=== PATIENT | female | born 1930 | race Caucasian/White ===

== ENCOUNTER 2017-06-02 19:51 | Inpatient (IN) | payer MEDICARE, MEDICAID ==
[~2017-06-02] VITALS: Ht 157.5 cm; Wt 46.4 kg
[2017-06-02] MEDS ORDERED: MORPHINE SULFATE 4 MG/ML CPJ (NOT FOR IM USE) IV STA (21:30)
[2017-06-02] MEDS ORDERED: ONDANSETRON HCL 4MG/2ML VIAL IV STA (21:30)
[2017-06-02 21:59] LABS: HEMOGLOBIN. 13.9 g/dL (12.0-16.0); MEAN CORPUSCULAR HEMOGLOBIN 31.6 pg (28.0-32.0); MEAN CORPUSCULAR VOLUME 93.4 fL (81.0-99.0); MEAN PLATELET VOLUME 7.7 fl (7.4-10.4); PLATELET 170 x1000/uL (130-400); RED BLOOD CELL COUNT 4.39 mill/uL (4.2-5.4)
[2017-06-02 22:01] LABS: INR 1.1; PROTHROMBIN TIME 11.5 sec (9.4-11.6)
[2017-06-02 22:02] LABS: CARBON DIOXIDE 24 mEq/L (21-32); CHLORIDE 104 mEq/L (98-107)
[2017-06-02 22:10] LABS: CREATINE KINASE 36 IU/L (26-192); TROPONIN I < 0.02 ng/mL (0.00-0.04)
[2017-06-02 22:22] LABS: PLATELET ESTIMATE NORMAL
[2017-06-03 03:29] VITALS: BP 133/70
[2017-06-03] MEDS ORDERED: LISI-604 PO (03:59)
[2017-06-03] MEDS ORDERED: DICL75TA5 PO (03:59)
[2017-06-03 04:00] VITALS: BP 133/70
[2017-06-03 07:47] VITALS: BP 125/58
[2017-06-03] MEDS ORDERED: IPRATROPIUM/ALBUTEROL 0.5-3(2.5)MG/3ML NEB INH PRN (08:45)
[2017-06-03] MEDS ORDERED: MAGNESIUM/ALUMINUM HYDROXIDE/SIMETHICONE 30ML UDC PO PRN (08:45)
[2017-06-03] MEDS ORDERED: ACETAMINOPHEN 325MG TABLET PO PRN (08:45)
[2017-06-03] MEDS ORDERED: NA PHOS,M-B/NA PHOS,DI-BA ENEMA 118ML PR PRN (08:45)
[2017-06-03] MEDS ORDERED: ACETAMINOPHEN 650MG/20.3ML UDC GT PRN (08:45)
[2017-06-03] MEDS ORDERED: DOCUSATE SODIUM 100MG CAPSULE PO PRN (08:45)
[2017-06-03] MEDS ORDERED: HYDROCODONE/ACETAMINOPHEN 5/325MG TABLET PO PRN (08:45)
[2017-06-03] MEDS ORDERED: GUAIFENESIN 200MG/10ML SUGAR FREE UDC PO PRN (08:45)
[2017-06-03] MEDS ORDERED: ACETAMINOPHEN 650MG SUPP PR PRN (08:45)
[2017-06-03] MEDS ORDERED: ENOXAPARIN 40MG/0.4ML SYR SUBCUT SCH (08:45)
[2017-06-03] MEDS ORDERED: CLONIDINE 0.1MG TABLET PO PRN (08:45)
[2017-06-03] MEDS: ENOXAPARIN 30MG/0.3ML SYR SUBCUT SCH (09:42)
[2017-06-03 11:32] VITALS: BP 108/48
[2017-06-03 16:00] VITALS: BP 110/45
[2017-06-03] MEDS: SODIUM CHLORIDE 0.9% INJ 3ML FLUSH IVF SCH ×2 (17:22→22:25)
[2017-06-03 20:00] VITALS: BP 126/51
[2017-06-03] MEDS ORDERED: DEXTROSE 50% WATER 50ML SYRINGE IV PRN (20:15)
[2017-06-03] MEDS: DICLOFENAC SODIUM 75MG DR (EC) TABLET PO SCH ×2 (20:30→22:24)
[2017-06-03 20:43] LABS: CREATINE KINASE 42 IU/L (26-192); TROPONIN I < 0.02 ng/mL (0.00-0.04)
[2017-06-03 20:51] LABS: CARBON DIOXIDE 26 mEq/L (21-32); CHLORIDE 104 mEq/L (98-107)
[2017-06-03] MEDS: INSULIN LISPRO 100 UNITS/ML SUBCUT SCH (21:00)
[2017-06-03] MEDS: BLOOD SUGAR DIAGNOSTIC STRIP TEST SCH (21:00)
[2017-06-03 21:32] LABS: CLARITY URINE CLOUDY (CLEAR); COLOR URINE YELLOW (YELLOW); GLUCOSE URINE NEGATIVE (NEGATIVE); KETONES URINE NEGATIVE (NEGATIVE); LEUKOCYTE ESTERASE URINE TRACE (NEGATIVE); NITRITE URINE NEGATIVE (NEGATIVE); OCCULT BLOOD URINE NEGATIVE (NEGATIVE); PH URINE 5.5 (4.5-8.0); PROTEIN URINE 2+ (NEGATIVE)
[2017-06-03 21:52] LABS: *AMPHETAMINES SCREEN URINE NEGATIVE (NEGATIVE); *BARBITURATES SCREEN URINE NEGATIVE (NEGATIVE); *BENZODIAZEPINES SCREEN URINE NEGATIVE (NEGATIVE); *COCAINE SCREEN URINE NEGATIVE (NEGATIVE); CANNABINOID URINE SCREEN NEGATIVE (NEGATIVE); METHADONE URINE SCREEN NEGATIVE (NEGATIVE); OPIATES URINE SCREEN PRESUMTIVE POSITIVE (NEGATIVE); PHENCYCLIDINE URINE SCREEN NEGATIVE (NEGATIVE)
[2017-06-03 21:53] LABS: BASOPHILS % 0.6 % (0.0-2.0); EOSINOPHILS % 4.7 % (0.0-5.0); HEMATOCRIT. 36.9 % (36.0-48.0); HEMOGLOBIN. 12.4 g/dL (12.0-16.0); LYMPHOCYTES % 24.7 % (20.0-50.0); MEAN CORPUSCULAR HEMOGLOBIN 31.3 pg (28.0-32.0); MEAN CORPUSCULAR VOLUME 93.4 fL (81.0-99.0); MEAN PLATELET VOLUME 7.7 fl (7.4-10.4); MONOCYTES % 7.3 % (2.0-8.0); NEUTROPHILS % 62.7 % (40.0-76.0); PLATELET 147 x1000/uL (130-400); RED BLOOD CELL COUNT 3.95 mill/uL (4.2-5.4); RED CELL DISTRIBUTION WIDTH 13.2 % (11.6-14.6)
[2017-06-03] MEDS: LISINOPRIL 20MG TABLET PO SCH (22:24)
[2017-06-04] VITALS: BP 121/49
[2017-06-04 04:00] VITALS: BP 133/51
[2017-06-04] MEDS: INSULIN LISPRO 100 UNITS/ML SUBCUT SCH ×3 (05:41→17:12)
[2017-06-04] MEDS: BLOOD SUGAR DIAGNOSTIC STRIP TEST SCH ×3 (05:41→17:04)
[2017-06-04] MEDS: SODIUM CHLORIDE 0.9% INJ 3ML FLUSH IVF SCH ×2 (05:42→16:03)
[2017-06-04 06:39] LABS: BASOPHILS % 0.5 % (0.0-2.0); EOSINOPHILS % 4.2 % (0.0-5.0); HEMATOCRIT. 36.9 % (36.0-48.0); HEMOGLOBIN. 12.7 g/dL (12.0-16.0); LYMPHOCYTES % 19.9 % (20.0-50.0); MEAN CORPUSCULAR HEMOGLOBIN 31.9 pg (28.0-32.0); MEAN CORPUSCULAR VOLUME 92.8 fL (81.0-99.0); MEAN PLATELET VOLUME 7.7 fl (7.4-10.4); MONOCYTES % 6.1 % (2.0-8.0); NEUTROPHILS % 69.3 % (40.0-76.0); PLATELET 159 x1000/uL (130-400); RED BLOOD CELL COUNT 3.98 mill/uL (4.2-5.4); RED CELL DISTRIBUTION WIDTH 12.9 % (11.6-14.6)
[2017-06-04 07:15] LABS: CARBON DIOXIDE 27 mEq/L (21-32); CHLORIDE 107 mEq/L (98-107); HDL CHOLESTEROL 37 mg/dL (40-59); LDL CHOLESTEROL 119 mg/dL (5-100)
[2017-06-04 07:20] LABS: CREATINE KINASE 63 IU/L (26-192); TROPONIN I < 0.02 ng/mL (0.00-0.04)
[2017-06-04 08:00] VITALS: BP 148/64
[2017-06-04] MEDS: DICLOFENAC SODIUM 75MG DR (EC) TABLET PO SCH ×2 (09:50→17:14)
[2017-06-04] MEDS: LISINOPRIL 20MG TABLET PO SCH (09:50)
[2017-06-04] MEDS: ENOXAPARIN 30MG/0.3ML SYR SUBCUT SCH (09:51)
[2017-06-04 12:00] VITALS: BP 157/63
[2017-06-04 16:00] VITALS: BP 133/61
[2017-06-04 17:16] VITALS: BP 133/61
== END 2017-06-04 18:05 | disposition home health service (06) | DRG 552 ==
LOC: ER 20:02 → 5WST 23:57 → ENRESERV 06-03 02:58
PROVIDERS: ADMIT Family Medicine; ATTEND Family Medicine
DX: M47.812 Spondylosis without myelopathy or radiculopathy, cervical region (principal); M06.9 Rheumatoid arthritis, unspecified; E11.9 Type 2 diabetes mellitus without complications; G95.20 Unspecified cord compression; W18.39XA Other fall on same level, initial encounter; M19.90 Unspecified osteoarthritis, unspecified site; I10 Essential (primary) hypertension; Y93.89 Activity, other specified; Y92.89 Other specified places as the place of occurrence of the external cause; Y99.8 Other external cause status
CPT/HCPCS: 36415; 70450; 71010; 71250; 72125; 80053; 80061; 80305; 81001; 82550; 82962; 83880; 84443; 84484; 85025; 85610; 93005; 96374; 96375; 97116; 97162; 99285; J1650; J2270; J2405

== ENCOUNTER 2018-10-14 15:14 | Inpatient (IN) | payer MEDICARE, MEDICAID ==
[~2018-10-14] VITALS: Ht 152.4 cm; Wt 49.2 kg
[~2018-10-14 15:14] MED LIST: DICL75TA5 PO; LISI-604 PO
[2018-10-14] MEDS ORDERED: ONDANSETRON HCL 4MG/2ML INJ IV STA (15:27)
[2018-10-14] MEDS ORDERED: MORPHINE SULFATE 4 MG/ML CPJ (NOT FOR IM USE) IV STA (15:27)
[2018-10-14] MEDS ORDERED: SODIUM CHLORIDE 0.9% 1,000 ML IV ONE (15:27)
[2018-10-14 15:59] LABS: CHLORIDE 106 mEq/L (98-107); PROTHROMBIN TIME 10.1 sec (9.1-11.1)
[2018-10-14 16:00] LABS: BASOPHILS % 0.3 % (0.0-2.0); EOSINOPHILS % 0.4 % (0.0-5.0); HEMATOCRIT. 40.7 % (36.0-48.0); HEMOGLOBIN. 13.8 g/dL (12.0-16.0); LYMPHOCYTES % 9.1 % (20.0-50.0); MEAN CORPUSCULAR HEMOGLOBIN 31.7 pg (28.0-32.0); MEAN PLATELET VOLUME 7.5 fl (7.4-10.4); MONOCYTES % 3.9 % (2.0-8.0); NEUTROPHILS % 86.3 % (40.0-76.0); PLATELET 248 x1000/uL (130-400); RED BLOOD CELL COUNT 4.33 mill/uL (4.2-5.4); RED CELL DISTRIBUTION WIDTH 13.2 % (11.6-14.6)
[2018-10-14 17:14] LABS: CLARITY URINE CLOUDY (CLEAR); COLOR URINE YELLOW (YELLOW); KETONES URINE NEGATIVE (NEGATIVE); LEUKOCYTE ESTERASE URINE TRACE (NEGATIVE); NITRITE URINE NEGATIVE (NEGATIVE); OCCULT BLOOD URINE NEGATIVE (NEGATIVE); PROTEIN URINE 2+ (NEGATIVE); SPECIFIC GRAVITY URINE 1.019 (1.005-1.030)
[2018-10-14] MEDS ORDERED: CLONIDINE 0.1MG TABLET PO PRN (22:45)
[2018-10-14] MEDS ORDERED: ACETAMINOPHEN 325MG TABLET PO PRN (22:45)
[2018-10-14] MEDS ORDERED: HYDROMORPHONE HCL/PF 2MG/ML CPJ IV PRN (22:45)
[2018-10-14] MEDS ORDERED: MAGNESIUM/ALUMINUM HYDROXIDE/SIMETHICONE 30ML UDC PO PRN (22:45)
[2018-10-14] MEDS ORDERED: DIPHENHYDRAMINE 50MG/ML VIAL IV PRN (22:45)
[2018-10-14] MEDS ORDERED: GUAIFENESIN 200MG/10ML SUGAR FREE UDC PO PRN (22:45)
[2018-10-14] MEDS ORDERED: DOCUSATE SODIUM 100MG CAPSULE PO PRN (22:45)
[2018-10-14] MEDS ORDERED: ONDANSETRON HCL 4MG/2ML INJ IV PRN (22:45)
[2018-10-14] MEDS ORDERED: NA PHOS,M-B/NA PHOS,DI-BA ENEMA 118ML PR PRN (22:45)
[2018-10-14] MEDS ORDERED: LORAZEPAM 2MG/ML CPJ IV PRN (22:45)
[2018-10-14] MEDS ORDERED: IPRATROPIUM/ALBUTEROL 0.5-3(2.5)MG/3ML NEB INH PRN (22:45)
[2018-10-15] VITALS (7 sets, daily range): BP systolic 133–180; BP diastolic 53–81
[2018-10-15] MEDS: SODIUM CHLORIDE 0.9% INJ 3ML FLUSH IVF SCH ×3 (05:21→20:58)
[2018-10-15 07:48] LABS: BASOPHILS % 0.3 % (0.0-2.0); EOSINOPHILS % 2.6 % (0.0-5.0); HEMATOCRIT. 38.5 % (36.0-48.0); LYMPHOCYTES % 21.1 % (20.0-50.0); MEAN CORPUSCULAR HEMOGLOBIN 31.9 pg (28.0-32.0); MEAN CORPUSCULAR VOLUME 94.7 fL (81.0-99.0); MEAN PLATELET VOLUME 7.7 fl (7.4-10.4); MONOCYTES % 7.6 % (2.0-8.0); NEUTROPHILS % 68.4 % (40.0-76.0); PLATELET 220 x1000/uL (130-400); RED BLOOD CELL COUNT 4.06 mill/uL (4.2-5.4); RED CELL DISTRIBUTION WIDTH 13.2 % (11.6-14.6)
[2018-10-15 07:57] LABS: CHLORIDE 109 mEq/L (98-107)
[2018-10-15 08:08] LABS: CREATINE KINASE MB FRACTION 2.8 ng/mL (0.5-3.6)
[2018-10-15 08:10] LABS: CREATINE KINASE 162 IU/L (26-192)
[2018-10-15] MEDS: ASPIRIN 81MG EC TABLET PO SCH (09:24)
[2018-10-15] MEDS: HYDROCODONE/ACETAMINOPHEN 10/325MG TABLET PO PRN (09:24)
[2018-10-15] MEDS: ENOXAPARIN 40MG/0.4ML SYR SUBCUT SCH (09:24)
[2018-10-15] MEDS ORDERED: LACTULOSE 20G/30ML UDC PO PRN (18:15)
[2018-10-15 19:47] LABS: CREATINE KINASE 121 IU/L (26-192)
[2018-10-15 19:48] LABS: CREATINE KINASE MB FRACTION 1.8 ng/mL (0.5-3.6)
[2018-10-16] VITALS: BP 128/68
[2018-10-16 04:00] VITALS: BP_SYST 128; BP_DIAS 54; BP_DIAS 58
[2018-10-16] MEDS: SODIUM CHLORIDE 0.9% INJ 3ML FLUSH IVF SCH ×3 (06:36→20:49)
[2018-10-16 08:00] VITALS: BP 156/59
[2018-10-16] MEDS: ENOXAPARIN 40MG/0.4ML SYR SUBCUT SCH (10:53)
[2018-10-16] MEDS: ASPIRIN 81MG EC TABLET PO SCH (10:53)
[2018-10-16 12:00] VITALS: BP 153/53
[2018-10-16 16:00] VITALS: BP 142/55
[2018-10-16 20:00] VITALS: BP 115/38
[2018-10-17] VITALS: BP 148/58
[2018-10-17 04:00] VITALS: BP 137/46
[2018-10-17] MEDS: SODIUM CHLORIDE 0.9% INJ 3ML FLUSH IVF SCH ×3 (06:58→21:00)
[2018-10-17 08:00] VITALS: BP 131/81
[2018-10-17] MEDS: ASPIRIN 81MG EC TABLET PO SCH (09:23)
[2018-10-17] MEDS: ENOXAPARIN 40MG/0.4ML SYR SUBCUT SCH (09:23)
[2018-10-17] MEDS ORDERED: CEFTRIAXONE 1 G PREMIX 50 ML IV SCH (09:45)
[2018-10-17] MEDS: CEFTRIAXONE 1,000 MG in DEXTROSE 5% WATER 50 ML IV SCH (11:44)
[2018-10-17 12:00] VITALS: BP 146/58
[2018-10-17 16:00] VITALS: BP 150/58
[2018-10-18] VITALS (8 sets, daily range): BP systolic 120–170; BP diastolic 48–85
[2018-10-18] MEDS: SODIUM CHLORIDE 0.9% INJ 3ML FLUSH IVF SCH ×3 (05:57→21:44)
[2018-10-18] MEDS ORDERED: ENOXAPARIN 30MG/0.3ML SYR SUBCUT SCH (09:00)
[2018-10-18] MEDS: ASPIRIN 81MG EC TABLET PO SCH (09:24)
[2018-10-18 10:26] LABS: BASOPHILS % 0.5 % (0.0-2.0); EOSINOPHILS % 2.7 % (0.0-5.0); HEMATOCRIT. 38.3 % (36.0-48.0); HEMOGLOBIN. 12.8 g/dL (12.0-16.0); LYMPHOCYTES % 27.9 % (20.0-50.0); MEAN CORPUSCULAR HEMOGLOBIN 31.3 pg (28.0-32.0); MEAN CORPUSCULAR VOLUME 93.8 fL (81.0-99.0); MEAN PLATELET VOLUME 7.7 fl (7.4-10.4); MONOCYTES % 8.1 % (2.0-8.0); NEUTROPHILS % 60.8 % (40.0-76.0); PLATELET 249 x1000/uL (130-400); RED BLOOD CELL COUNT 4.09 mill/uL (4.2-5.4); RED CELL DISTRIBUTION WIDTH 13.1 % (11.6-14.6)
[2018-10-18 10:36] LABS: CHLORIDE 109 mEq/L (98-107)
[2018-10-18 10:49] LABS: HDL CHOLESTEROL 37 mg/dL (40-59)
[2018-10-18 10:51] LABS: PHOSPHORUS 3.7 mg/dL (2.5-4.9)
[2018-10-18 10:52] LABS: LDL CHOLESTEROL 129 mg/dL (5-100)
[2018-10-18] MEDS: CEFTRIAXONE 1,000 MG in DEXTROSE 5% WATER 50 ML IV SCH (13:00)
[2018-10-18] MEDS ORDERED: CLONIDINE 0.1MG TABLET PO PRN (13:15)
[2018-10-18] MEDS: AMLODIPINE 2.5MG TABLET PO SCH ×2 (14:13→21:44)
[2018-10-18] MEDS: HYDROCODONE/ACETAMINOPHEN 10/325MG TABLET PO PRN (22:21)
== END 2018-10-18 22:31 | disposition home health service (06) | DRG 347 ==
LOC: ER 15:24 → 5WST 22:16 → EDBEDREQTM 22:16 → EDBEDREQ 22:16 → ENRESERV 23:58
PROVIDERS: ADMIT Internal Medicine; ATTEND Internal Medicine
DX: M48.56XA Collapsed vertebra, not elsewhere classified, lumbar region, initial encounter for fracture (principal); E46 Unspecified protein-calorie malnutrition; E86.0 Dehydration; E83.51 Hypocalcemia; N39.0 Urinary tract infection, site not specified; R26.9 Unspecified abnormalities of gait and mobility; M85.80 Other specified disorders of bone density and structure, unspecified site; I10 Essential (primary) hypertension; R26.2 Difficulty in walking, not elsewhere classified; Z79.899 Other long term (current) drug therapy; Z91.81 History of falling; Z68.21 Body mass index [BMI] 21.0-21.9, adult; Z87.81 Personal history of (healed) traumatic fracture; M48.061 Spinal stenosis, lumbar region without neurogenic claudication
CPT/HCPCS: 36415; 72131; 74021; 80048; 80061; 82550; 82553; 83735; 84100; 84134; 84484; 93005; 93306; 93970; 97162; 97530; 99285; A6261; J0696; J1170; J1650; J2270; J2405; J7030; J7040; J7060

== ENCOUNTER 2019-04-29 11:52 | Emergency (ER) | payer MEDICARE, MEDICAID ==
[~2019-04-29] VITALS: Ht 144.8 cm; Wt 36.0 kg
[2019-04-29] MEDS ORDERED: BACITRACIN ZINC OINT UDPKT TOP ONE (13:00)
[2019-04-29] MEDS ORDERED: BACITRACIN 15GM TUBE TOP ONE (14:00)
[2019-04-29 14:19] VITALS: BP 153/50
== END 2019-04-29 14:47 | disposition home or self-care (01) ==
LOC: ER 11:52
DX: S51.812A Laceration without foreign body of left forearm, initial encounter (principal); I10 Essential (primary) hypertension; Z87.81 Personal history of (healed) traumatic fracture; Z99.3 Dependence on wheelchair; W45.8XXA Other foreign body or object entering through skin, initial encounter; W22.09XA Striking against other stationary object, initial encounter; Y93.89 Activity, other specified; Y92.018 Other place in single-family (private) house as the place of occurrence of the external cause
CPT/HCPCS: 12002; 99283

== ENCOUNTER 2021-04-15 10:17 | Inpatient (IN) | payer MEDICARE, MEDICAID ==
[~2021-04-15] VITALS: Ht 152.4 cm; Wt 41.4 kg
[~2021-04-15 10:17] MED LIST changes: +AMLO10TA80 MT; +CALC-1098 MT; +DOCU-347 MT; +LEVO500T89 MT; -LISI-604 PO; +TRAZ-251 MT
[2021-04-15] MEDS ORDERED: SODIUM CHLORIDE 0.9% 250 ML IV ONE (11:15)
[2021-04-15 11:40] LABS: BASOPHILS % 0.2 % (0.0-2.0); EOSINOPHILS % 0.1 % (0.0-5.0); HEMATOCRIT. 41.1 % (36.0-48.0); HEMOGLOBIN. 13.3 g/dL (12.0-16.0); LYMPHOCYTES % 11.5 % (20.0-50.0); MEAN CORPUSCULAR HEMOGLOBIN 31.4 pg (28.0-32.0); MEAN CORPUSCULAR VOLUME 96.8 fL (81.0-99.0); MEAN PLATELET VOLUME 7.3 fl (7.4-10.4); MONOCYTES % 4.8 % (2.0-8.0); NEUTROPHILS % 83.4 % (40.0-76.0); PLATELET 273 x1000/uL (130-400); RED BLOOD CELL COUNT 4.25 mill/uL (4.2-5.4); RED CELL DISTRIBUTION WIDTH 14.2 % (11.6-14.6)
[2021-04-15] MEDS ORDERED: SODIUM CHLORIDE 0.9% 1000ML BAG (SEPSIS BOLUS) IV ONE (12:00)
[2021-04-15] MEDS ORDERED: CEFTRIAXONE 1 G PREMIX 50 ML IV ONE (12:00)
[2021-04-15 12:48] LABS: INR 1.1; PROTHROMBIN TIME 11.4 sec (9.6-11.0)
[2021-04-15 13:40] LABS: CHLORIDE 107 mEq/L (98-107)
[2021-04-15 14:05] LABS: CLARITY URINE CLEAR (CLEAR); COLOR URINE YELLOW (YELLOW); KETONES URINE NEGATIVE (NEGATIVE); LEUKOCYTE ESTERASE URINE 1+ (NEGATIVE); NITRITE URINE NEGATIVE (NEGATIVE); OCCULT BLOOD URINE NEGATIVE (NEGATIVE); PH URINE 7.5 (4.5-8.0); PROTEIN URINE NEGATIVE (NEGATIVE); SPECIFIC GRAVITY URINE 1.015 (1.005-1.030); UROBILINOGEN URINE 0.2 E.U./dL (0.2-1.0)
[2021-04-15] MEDS ORDERED: LEVOFLOXACIN 500MG PREMIX 100 ML IV ONE (14:45)
[2021-04-15] MEDS ORDERED: ACETAMINOPHEN 325MG TABLET PO PRN (18:15)
[2021-04-15] MEDS ORDERED: IPRATROPIUM/ALBUTEROL 0.5-3(2.5)MG/3ML NEB HHN PRN (18:15)
[2021-04-15] MEDS ORDERED: DIPHENHYDRAMINE 50MG/ML VIAL IV PRN (18:15)
[2021-04-15] MEDS ORDERED: ONDANSETRON HCL 4MG/2ML INJ IV PRN (18:15)
[2021-04-15] MEDS ORDERED: CLONIDINE 0.1MG TABLET PO PRN (18:15)
[2021-04-15] MEDS ORDERED: PIPERACILLIN/TAZ 3.375G PREMIX 3.375 ML IV SCH (18:30)
[2021-04-15] MEDS ORDERED: VANCOMYCIN 750 MG PREMIX 150 ML IV NR (20:00)
[2021-04-15 23:25] VITALS: BP 143/65
[2021-04-16] VITALS: BP 163/83
[2021-04-16 04:00] VITALS: BP 139/68
[2021-04-16] MEDS ORDERED: VANCOMYCIN 750 MG PREMIX 150 ML IV NR (05:00)
[2021-04-16] MEDS: SODIUM CHLORIDE 0.9% 1,000 ML IV SCH ×2 (05:54→14:30)
[2021-04-16] MEDS ORDERED: PIPERACILLIN/TAZOBACTAM 3.375 G in DEXTROSE 5% WATER 50 ML IV SCH (06:00)
[2021-04-16 06:13] LABS: BASOPHILS % 0.4 % (0.0-2.0); HEMATOCRIT. 32.1 % (36.0-48.0); HEMOGLOBIN. 10.8 g/dL (12.0-16.0); LYMPHOCYTES % 8.3 % (20.0-50.0); MEAN CORPUSCULAR HEMOGLOBIN 31.4 pg (28.0-32.0); MEAN CORPUSCULAR VOLUME 93.7 fL (81.0-99.0); MEAN PLATELET VOLUME 8.5 fl (7.4-10.4); NEUTROPHILS % 87.3 % (40.0-76.0); PLATELET 210 x1000/uL (130-400); RED BLOOD CELL COUNT 3.43 mill/uL (4.2-5.4); RED CELL DISTRIBUTION WIDTH 13.8 % (11.6-14.6)
[2021-04-16 06:15] LABS: CHLORIDE 114 mEq/L (98-107)
[2021-04-16 06:29] LABS: HDL CHOLESTEROL 45 mg/dL (40-59); LDL CHOLESTEROL 76 mg/dL (5-100)
[2021-04-16] MEDS ORDERED: DEXTROSE 50% WATER 50ML SYRINGE IV PRN (07:45)
[2021-04-16 08:00] VITALS: BP 147/75
[2021-04-16] MEDS: PIPERACILLIN/TAZOBACTAM 3.375 G in DEXTROSE 5% WATER 50 ML IV SCH ×3 (08:30→20:17)
[2021-04-16] MEDS: BLOOD SUGAR DIAGNOSTIC STRIP TEST SCH ×3 (11:40→20:17)
[2021-04-16] MEDS: INSULIN LISPRO 100 UNITS/ML SUBCUT SCH ×3 (11:54→21:37)
[2021-04-16 12:00] VITALS: BP 146/72
[2021-04-16] MEDS ORDERED: LIDOCAINE HCL 1% 20ML VIAL (Pyxis) INJ ONE (14:35)
[2021-04-16 16:00] VITALS: BP 131/66
[2021-04-16] MEDS: VANCOMYCIN 500 MG PREMIX 100 ML IV SCH (18:44)
[2021-04-16 20:00] VITALS: BP 149/65
[2021-04-17] VITALS: BP 114/45
[2021-04-17 04:00] VITALS: BP 104/48
[2021-04-17] MEDS: BLOOD SUGAR DIAGNOSTIC STRIP TEST SCH ×4 (06:15→20:25)
[2021-04-17] MEDS: PIPERACILLIN/TAZOBACTAM 3.375 G in DEXTROSE 5% WATER 50 ML IV SCH ×2 (06:15→14:14)
[2021-04-17] MEDS: INSULIN LISPRO 100 UNITS/ML SUBCUT SCH ×4 (06:28→20:25)
[2021-04-17 08:00] VITALS: BP 100/54
[2021-04-17] MEDS: SODIUM CHLORIDE 0.9% 1,000 ML IV SCH (09:46)
[2021-04-17 12:00] VITALS: BP 112/60
[2021-04-17] MEDS: VANCOMYCIN 500 MG PREMIX 100 ML IV SCH (13:25)
[2021-04-17 16:00] VITALS: BP 102/59
[2021-04-17] MEDS ORDERED: SODIUM CHLORIDE 0.9% 250 ML IV NR (16:45)
[2021-04-17] MEDS: VANCOMYCIN HCL 1000 MG/20 ML ORAL PO SCH ×2 (17:15→22:57)
[2021-04-17 18:31] LABS: HEMATOCRIT. 36.7 % (36.0-48.0); HEMOGLOBIN. 11.9 g/dL (12.0-16.0); MEAN CORPUSCULAR HEMOGLOBIN 31.2 pg (28.0-32.0); MEAN CORPUSCULAR VOLUME 96.3 fL (81.0-99.0); MEAN PLATELET VOLUME 7.9 fl (7.4-10.4); PLATELET 247 x1000/uL (130-400); RED BLOOD CELL COUNT 3.81 mill/uL (4.2-5.4); RED CELL DISTRIBUTION WIDTH 13.6 % (11.6-14.6)
[2021-04-17 18:48] LABS: CHLORIDE 111 mEq/L (98-107)
[2021-04-17 19:32] LABS: PLATELET ESTIMATE NORMAL
[2021-04-17 20:00] VITALS: BP 107/28
[2021-04-18] VITALS: BP 105/54
[2021-04-18 04:00] VITALS: BP 102/55
[2021-04-18 06:12] LABS: VANCOMYCIN TROUGH 15.5 ug/mL (5.0-10.0)
[2021-04-18 06:16] LABS: HEMOGLOBIN. 11.8 g/dL (12.0-16.0); MEAN CORPUSCULAR HEMOGLOBIN 31.1 pg (28.0-32.0); MEAN CORPUSCULAR VOLUME 95.1 fL (81.0-99.0); MEAN PLATELET VOLUME 8.1 fl (7.4-10.4); PLATELET 201 x1000/uL (130-400); RED BLOOD CELL COUNT 3.79 mill/uL (4.2-5.4); RED CELL DISTRIBUTION WIDTH 13.8 % (11.6-14.6)
[2021-04-18] MEDS: INSULIN LISPRO 100 UNITS/ML SUBCUT SCH ×2 (06:33→12:17)
[2021-04-18] MEDS: SODIUM CHLORIDE 0.9% 1,000 ML IV SCH (06:34)
[2021-04-18] MEDS: VANCOMYCIN 500 MG PREMIX 100 ML IV SCH (06:37)
[2021-04-18] MEDS: BLOOD SUGAR DIAGNOSTIC STRIP TEST SCH ×2 (06:38→11:43)
[2021-04-18] MEDS: VANCOMYCIN HCL 1000 MG/20 ML ORAL PO SCH ×2 (06:38→12:14)
[2021-04-18 08:00] VITALS: BP 90/47
[2021-04-18] MEDS ORDERED: EPINEPHRINE 0.1MG/ML (1:10,000) 10ML SYR ONE ×2 (08:41)
[2021-04-18] MEDS ORDERED: AMIODARONE HCL 50MG/ML 3ML VIAL IV ONE (08:41)
[2021-04-18] MEDS ORDERED: SODIUM BICARBONATE 8.4% 1 MEQ/ML 50ML SYR IV ONE ×2 (08:41)
[2021-04-18] MEDS ORDERED: CALCIUM CHLORIDE 1GM/10ML SYR IV ONE (08:41)
[2021-04-18] MEDS ORDERED: ADENOSINE 3 MG/ML 2ML VIAL IV ONE (08:41)
[2021-04-18 09:47] LABS: BG BASE EXCESS -10.3 mmol/L (-2.0-2.0); BG CARBOXYHEMOGLOBIN 0.2 % (0.5-1.5); BG DEOXYHEMOGLOBIN 2.9 % (0.0-5.0); BG FRACTION INSPIRED OXYGEN 21; BG HCO3 ACT 11.2 mmol/L (22.0-26.0); BG METHEMOGLOBIN 0.3 % (0.0-1.5); BG OXYGEN SATURATION 97.1 % (92.0-98.5); BG OXYHEMOGLOBIN 96.6 % (94.0-97.0); BG PCO2 17.1 mmHg (35.0-45.0); BG PH 7.436 (7.350-7.450); BG PO2 89.1 mmHg (75.0-100.0); BG SAMPLE SITE RIGHT RADIAL; BG TOTAL HEMOGLOBIN 12.9 g/dL (12.0-18.0); BG VENT MODE ROOM AIR
[2021-04-18 12:00] VITALS: BP 100/43
[2021-04-18 14:08] LABS: PLATELET ESTIMATE NORMAL
[2021-04-18 16:00] VITALS: BP 114/76
== END 2021-04-18 16:48 | DRG 720 ==
LOC: ER 10:26 → EDBEDREQ 12:01 → MICUSO 14:46 → EDBEDREQ 14:57 → 7EST 20:54
PROVIDERS: ADMIT Internal Medicine; ATTEND Internal Medicine
PROC: 02HV33Z Insertion of Infusion Device into Superior Vena Cava, Percutaneous Approach (ICD-10-PCS; 2021-04-16)
PROC: B548ZZA Ultrasonography of Superior Vena Cava, Guidance (ICD-10-PCS; 2021-04-16)
PROC: 5A1935Z Respiratory Ventilation, Less than 24 Consecutive Hours (ICD-10-PCS; principal; 2021-04-18)
PROC: 0BH17EZ Insertion of Endotracheal Airway into Trachea, Via Natural or Artificial Opening (ICD-10-PCS; 2021-04-18)
PROC: 5A12012 Performance of Cardiac Output, Single, Manual (ICD-10-PCS; 2021-04-18)
PROC: 5A2204Z Restoration of Cardiac Rhythm, Single (ICD-10-PCS; 2021-04-18)
DX: A41.89 Other specified sepsis (principal); G93.41 Metabolic encephalopathy; E87.2 Acidosis; A04.72 Enterocolitis due to Clostridium difficile, not specified as recurrent; F03.90 Unspecified dementia, unspecified severity, without behavioral disturbance, psychotic disturbance, mood disturbance, and anxiety; E87.5 Hyperkalemia; I10 Essential (primary) hypertension; J98.11 Atelectasis; K21.9 Gastro-esophageal reflux disease without esophagitis; N39.0 Urinary tract infection, site not specified; Z20.822 Contact with and (suspected) exposure to COVID-19; I46.9 Cardiac arrest, cause unspecified
CPT/HCPCS: 36415; 36600; 71045; 76937; 80048; 80053; 80061; 80202; 81003; 82040; 82375; 82805; 82962; 83036; 83605; 83880; 84134; 84145; 84443; 84484; 85025; 87426; 87493; 92950; 93005; 93970; 99291; C1725; C1769; C1893; J0153; J0282; J0696; J1815; J1956; J2543; J3370; J3490; J7030; J7050; J7060